=== PATIENT | female | born 1990 | race Caucasian/White ===

== ENCOUNTER 2018-03-31 22:38 | Outpatient (CLI) | payer OTHER ==
[~2018-03-31 22:38] MED LIST: CEFADROXIL500 MG PO
== END 2018-04-01 11:41 | disposition home or self-care (01) ==
LOC: OBS/DEL 22:38
DX: O26.893 Other specified pregnancy related conditions, third trimester (principal); R10.2 Pelvic and perineal pain; Z34.83 Encounter for supervision of other normal pregnancy, third trimester

== ENCOUNTER 2018-04-13 07:03 | Inpatient (IN) | payer OTHER ==
[~2018-04-13] VITALS: Ht 149.9 cm; Wt 60.8 kg
== END 2018-04-15 14:09 | disposition home or self-care (01) | DRG 775 ==
LOC: OB/GYN 07:03 → LDR 07:03 → OB/GYN 11:25
PROC: 10E0XZZ Delivery of Products of Conception, External Approach (ICD-10-PCS; principal; 2018-04-13)
PROC: 0KQM0ZZ Repair Perineum Muscle, Open Approach (ICD-10-PCS; 2018-04-13)
PROC: 4A033R1 Measurement of Arterial Saturation, Peripheral, Percutaneous Approach (ICD-10-PCS; 2018-04-13)
PROC: 4A1HXCZ Monitoring of Products of Conception, Cardiac Rate, External Approach (ICD-10-PCS; 2018-04-13)
DX: O70.1 Second degree perineal laceration during delivery (principal); Z37.0 Single live birth; Z3A.38 38 weeks gestation of pregnancy

== ENCOUNTER 2023-08-19 10:11 | Outpatient (CLI) | payer OTHER ==
[2023-08-19] MEDS ORDERED: FOLIC ACID20 MG PO (10:46)
[2023-08-19] MEDS ORDERED: PRENATAL TABLE1 EAC1 PO (10:46)
[2023-08-19 10:48] LABS: URINE APPEARANCE Clear; URINE BILIRRUBIN Negative (NEGATIVE); URINE BLOOD Small; URINE COLOR Yellow; URINE GLUCOSE Negative (NEGATIVE); URINE LEUKOCYTE Large; URINE NITRATE Negative; URINE PROTEIN Negative (NEGATIVE); URINE UROBILINOGEN 0.2 E.U./dl
[2023-08-19 10:49] LABS: URINE BACTERIA 539.1 uL (0.0-1933); URINE EPITHELIAL CELLS 3.4 uL (0.0-38.8); URINE RBC 4.3 uL (0.0-20.8); URINE WBC 102.1 uL (0.0-23.2)
[2023-08-19 11:00] LABS: HEMOGLOBIN 11.1 g/dL (12.0-15.00); MEAN CELL VOLUME 81.7 fL (80.00-100.00); MEAN CORPUSCULAR HEMOGLOBIN 28.5 pg (27.00-32.0); MEAN CORPUSCULAR HGB CONC 34.8 g/dl (32.0-36.0); PLATELET COUNT 345 K/uL (150-450); RED BLOOD COUNT 3.92 M/uL (4.00-6.00); RED CELL DISTRIBUTION WIDTH 14.7 % (11.5-14.5)
== END 2023-08-19 22:01 | disposition home or self-care (01) ==
LOC: OBS/DEL 10:11
PROVIDERS: ATTEND Obstetrics & Gynecology
DX: O26.892 Other specified pregnancy related conditions, second trimester (principal); Z3A.25 25 weeks gestation of pregnancy; E83.59 Other disorders of calcium metabolism; N29 Other disorders of kidney and ureter in diseases classified elsewhere; Z87.440 Personal history of urinary (tract) infections

== ENCOUNTER 2023-10-11 17:53 | Outpatient (CLI) | payer OTHER ==
[~2023-10-11 17:53] MED LIST changes: +FOLIC ACID20 MG PO; +PRENATAL TABLE1 EAC1 PO
[2023-10-11 18:38] LABS: URINE APPEARANCE Clear; URINE BILIRRUBIN Negative (NEGATIVE); URINE BLOOD Trace; URINE COLOR Yellow; URINE GLUCOSE Negative (NEGATIVE); URINE LEUKOCYTE Large; URINE NITRATE Negative; URINE PROTEIN Negative (NEGATIVE); URINE UROBILINOGEN 0.2 E.U./dl
[2023-10-11 18:40] LABS: HEMATOCRIT 35.8 % (36.0-45.00); HEMOGLOBIN 12.1 g/dL (12.0-15.00); MEAN CELL VOLUME 79.7 fL (80.00-100.00); MEAN CORPUSCULAR HGB CONC 33.9 g/dl (32.0-36.0); PLATELET COUNT 379 K/uL (150-450); RED BLOOD COUNT 4.49 M/uL (4.00-6.00); RED CELL DISTRIBUTION WIDTH 15.2 % (11.5-14.5)
[2023-10-11 18:42] LABS: URINE BACTERIA 1971.7 uL (0.0-1933); URINE WBC 109.2 uL (0.0-23.2)
[2023-10-11 19:13] LABS: ALBUMIN 2.6 gm/dL (3.4-5.0); BILIRUBIN TOTAL 0.72 mg/dL (0.3-1.2); CALCIUM 8.4 mg/dL (8.5-10.1); CREATININE SERUM 0.75 mg/dL (0.55-1.02); GFR 89.55; TOTAL PROTEIN 6.6 gm/dL (6.4-8.2)
[2023-10-11 19:30] LABS: POTASSIUM 2.64 mEq/L (3.5-5.1)
[2023-10-11 20:21] LABS: URINE RBC 0.8 uL (0.0-20.8)
== END 2023-10-12 09:51 | disposition home or self-care (01) ==
LOC: OBS/DEL 17:53
PROVIDERS: Specialist; ATTEND Obstetrics & Gynecology
DX: O26.893 Other specified pregnancy related conditions, third trimester (principal); Z3A.33 33 weeks gestation of pregnancy; K52.89 Other specified noninfective gastroenteritis and colitis; Z20.822 Contact with and (suspected) exposure to COVID-19

== ENCOUNTER 2023-10-30 00:53 | Inpatient (IN) | payer OTHER ==
[~2023-10-30] VITALS: Ht 149.9 cm; Wt 68.0 kg
[2023-10-30 02:02] LABS: HEMATOCRIT 33.8 % (36.0-45.00); HEMOGLOBIN 11.2 g/dL (12.0-15.00); MEAN CELL VOLUME 81.8 fL (80.00-100.00); PLATELET COUNT 353 K/uL (150-450); RED BLOOD COUNT 4.13 M/uL (4.00-6.00); RED CELL DISTRIBUTION WIDTH 16.1 % (11.5-14.5)
[2023-10-30] MEDS ORDERED: MACROBID 100 M100 MG PO (02:02)
[2023-10-30] MEDS ORDERED: PRENATAL CAPLE1 EAC1 PO (02:02)
[2023-10-30 02:03] LABS: URINE APPEARANCE Cloudy; URINE BILIRRUBIN Negative (NEGATIVE); URINE BLOOD Moderate; URINE COLOR Yellow; URINE GLUCOSE Negative (NEGATIVE); URINE LEUKOCYTE Large; URINE NITRATE Negative; URINE PROTEIN Negative (NEGATIVE); URINE UROBILINOGEN 0.2 E.U./dl
[2023-10-30 02:07] LABS: URINE BACTERIA 1187.9 uL (0.0-1933); URINE RBC 5.3 uL (0.0-20.8); URINE WBC 328.8 uL (0.0-23.2)
[2023-10-30 02:32] LABS: INR 0.97; PARTIAL THROMBOPLASTIN TIME 29.1 SECONDS (22.0-34.0); PROTHROMBIN TIME 10.2 SECONDS (9.0-11.5)
[2023-10-31 06:29] LABS: ABG pCO2 43.3 mmHg (35-45)
[2023-10-31 06:30] LABS: ABG PO2 21.1 mmHg (80-100); BICARBONATE 20.4 mmol/l (23-25); Tco2 21.7 mmol/l; o2 21 %
[2023-10-31 06:32] LABS: SaO2 26.8 %
[2023-10-31 07:22] LABS: HEMATOCRIT 30.7 % (36.0-45.00); MEAN CELL VOLUME 82.8 fL (80.00-100.00); MEAN CORPUSCULAR HEMOGLOBIN 26.9 pg (27.00-32.0); MEAN CORPUSCULAR HGB CONC 32.5 g/dl (32.0-36.0); PLATELET COUNT 327 K/uL (150-450); RED BLOOD COUNT 3.71 M/uL (4.00-6.00); RED CELL DISTRIBUTION WIDTH 16.3 % (11.5-14.5)
== END 2023-11-02 15:01 | disposition home or self-care (01) | DRG 786 ==
LOC: LDR → OB/GYN 10-31 03:01
PROVIDERS: ADMIT Obstetrics & Gynecology; ATTEND Obstetrics & Gynecology
PROC: 4A1HXCZ Monitoring of Products of Conception, Cardiac Rate, External Approach (ICD-10-PCS; 2023-10-30)
PROC: 10D00Z1 Extraction of Products of Conception, Low, Open Approach (ICD-10-PCS; principal; 2023-10-31 00:15)
DX: O44.03 Complete placenta previa NOS or without hemorrhage, third trimester (principal); O60.14X0 Preterm labor third trimester with preterm delivery third trimester, not applicable or unspecified; O36.8330 Maternal care for abnormalities of the fetal heart rate or rhythm, third trimester, not applicable or unspecified; Z3A.35 35 weeks gestation of pregnancy; Z37.0 Single live birth; Z20.822 Contact with and (suspected) exposure to COVID-19